=== PATIENT | female | born 1980 | race Caucasian/White ===

== ENCOUNTER 2019-01-28 10:52 | Emergency (ER) | payer SELFPAY ==
[~2019-01-28] VITALS: Ht 152.4 cm; Wt 65.0 kg
[2019-01-28] MEDS ORDERED: METHYLPREDNISOLONE SOD SUCC 125 MG/2 ML VIAL IM STA (12:37)
[2019-01-28] MEDS ORDERED: CEFTRIAXONE SODIUM 1 G/VIAL IM ONE (12:45)
[2019-01-28] MEDS ORDERED: LIDOCAINE HCL 1% 20ML VIAL (Pyxis) INJ INFIL ONE (12:45)
[2019-01-28] MEDS ORDERED: FAMOTIDINE 20MG TABLET PO ONE (14:00)
[2019-01-28] MEDS ORDERED: DIPHENHYDRAMINE 50MG/ML VIAL IM ONE (14:00)
[2019-01-28 14:23] VITALS: BP 110/67
== END 2019-01-28 14:28 | disposition home or self-care (01) ==
LOC: ER 11:41
DX: T78.1XXA Other adverse food reactions, not elsewhere classified, initial encounter (principal); J03.90 Acute tonsillitis, unspecified; H92.01 Otalgia, right ear; X58.XXXA Exposure to other specified factors, initial encounter
CPT/HCPCS: 81025; 87070; 87430; 96372; 99283; J0696; J1200; J2930; J3490; Z7610

== ENCOUNTER 2020-11-15 23:38 | Emergency (ER) | payer MEDICAID ==
[~2020-11-15] VITALS: Ht 172.7 cm; Wt 75.0 kg
[2020-11-15 23:41] VITALS: BP 134/97
[2020-11-16] MEDS ORDERED: HYDROCODONE/ACETAMINOPHEN 5/325MG TABLET PO STA (00:07)
[2020-11-16] MEDS ORDERED: BACITRACIN ZINC OINT UDPKT TOP NR (01:45)
== END 2020-11-16 02:02 | disposition home or self-care (01) ==
LOC: ER 23:38
DX: S80.02XA Contusion of left knee, initial encounter (principal); S80.212A Abrasion, left knee, initial encounter; S40.011A Contusion of right shoulder, initial encounter; W18.39XA Other fall on same level, initial encounter; Y93.89 Activity, other specified; Y92.89 Other specified places as the place of occurrence of the external cause; Y99.8 Other external cause status; M25.511 Pain in right shoulder
CPT/HCPCS: 73030; 73562; 99284

== ENCOUNTER 2021-05-17 16:29 | Emergency (ER) | payer MEDICAID, OTHER ==
[~2021-05-17] VITALS: Ht 152.4 cm; Wt 73.0 kg
[2021-05-17 21:02] VITALS: BP 110/77
[2021-05-17] MEDS ORDERED: NEOM10DR11 LEFT EAR (21:28)
== END 2021-05-17 21:43 | disposition home or self-care (01) ==
LOC: ER 16:29
DX: H60.502 Unspecified acute noninfective otitis externa, left ear (principal); Z88.6 Allergy status to analgesic agent
CPT/HCPCS: 81025; 99283

== ENCOUNTER 2022-07-02 05:39 | Emergency (ER) | payer MEDICAID, OTHER ==
[~2022-07-02] VITALS: Ht 165.1 cm; Wt 74.0 kg
[~2022-07-02 05:39] MED LIST: NEOM10DR11 LEFT EAR
[2022-07-02 05:54] VITALS: BP 122/80
[2022-07-02] MEDS ORDERED: ACETAMINOPHEN 325MG TABLET PO ONE (06:00)
[2022-07-02] MEDS ORDERED: TOPUD PO (07:25)
== END 2022-07-02 07:34 | disposition home or self-care (01) ==
LOC: ER 05:58
DX: M54.2 Cervicalgia (principal); M25.511 Pain in right shoulder; M25.552 Pain in left hip; V43.52XA Car driver injured in collision with other type car in traffic accident, initial encounter; Y93.89 Activity, other specified; Y92.410 Unspecified street and highway as the place of occurrence of the external cause; Z88.6 Allergy status to analgesic agent
CPT/HCPCS: 71045; 73030; 74176; 99284